=== PATIENT | male | born 1980 | race Caucasian/White ===

== ENCOUNTER 2021-03-04 00:04 | Emergency (ER) | payer OTHER ==
[~2021-03-04] VITALS: Ht 167.6 cm; Wt 102.5 kg
[2021-03-04 00:20] VITALS: BP 138/90
--- NOTE | 2021-03-04 00:24 | NUR ---
PATIENT AMBUALTED TO BED 2 WITH STEADY GAIT.
--- NOTE | 2021-03-04 00:30 | NUR ---
40/M PATIENT BIB SELF FOR C/O L BUTTOCKS ABSCESS. PER PATIENT ABSCESS SHOWED UP X 2 DAYS AGO BUT POPPED TODAY. SWELLING, REDNESS AND WHITE DISCHARGE NOTED UPON ASSESSMENT. PT COMPLAINING OF RUBBING/BURNING PAIN 5/10. PT DENIES ANY FEVER OR CHILLS. PMH: DM, THYROID NKDA
--- NOTE | 2021-03-04 00:34 | NUR ---
DR MONACO AT BEDSIDE EXAMINING PATIENT
[2021-03-04] MEDS ORDERED: NACL 0.9% 1,000 ML IV ONE (00:45)
[2021-03-04] MEDS ORDERED: MORPHINE SULFATE 2 MG/ML SYR IVP ONE (00:45)
[2021-03-04] MEDS ORDERED: ONDANSETRON 4 MG/2 ML VIAL IVP ONE (00:45)
[2021-03-04] MEDS ORDERED: CEFEPIME 2,000 MG in DEXTROSE 5% 100 ML IV ONE (00:45)
[2021-03-04] MEDS ORDERED: CEFEPIME 2,000 MG VIAL IV ONE (01:02)
[2021-03-04 01:05] LABS: BASOPHILS # (AUTO) 0.1 K/uL (0.00-0.22); BASOPHILS % (AUTO) 0.9 % (0.0-2.0); EOSINOPHILS # (AUTO) 0.1 K/uL (0-0.4); EOSINOPHILS % (AUTO) 0.8 % (0.0-4.0); HEMATOCRIT 39.6 % (36-52); HEMOGLOBIN 13.4 g/dL (12.0-18.0); LYMPHOCYTES % (AUTO) 31.1 % (20.5-51.1); MEAN CORPUSCULAR HEMOGLOBIN 30 pg (27-31); MEAN CORPUSCULAR HGB CONC 34 g/dL (33-37); MEAN CORPUSCULAR VOLUME 88.8 fL (80-94); MONOCYTES # (AUTO) 0.4 K/uL (0.8-1.0); MONOCYTES % (AUTO) 6.8 % (1.7-9.3); NEUTROPHILS # (AUTO) 3.9 K/uL (1.8-7.7); NEUTROPHILS % (AUTO) 60.4 % (42.2-75.2); PLATELET COUNT (AUTO) 357 K/uL (140-450); RED BLOOD CELL COUNT(AUTO) 4.46 MIL/uL (4.20-6.10); RED CELL DISTRIBUTION WIDTH 13.9 % (11.6-13.7); WHITE BLOOD COUNT (AUTO) 6.4 K/uL (4.8-10.8)
[2021-03-04 01:28] LABS: ALBUMIN 3.1 g/dL (3.4-5.0); ANION GAP 16.6 (8-16); CARBON DIOXIDE 25.5 mmol/L (21-32); POTASSIUM 4.1 mmol/L (3.5-5.1); TOTAL BILIRUBIN 0.8 mg/dL (0.0-1.0)
--- NOTE | 2021-03-04 01:35 | NUR ---
PT RECEIVED TDAP VACCINATION IN [address]. DR. MONACO NOTIFIED AND ORDER CANCELLED AT THIS TIME.
[2021-03-04 02:27] LABS: APPEARANCE,URINE CLEAR (CLEAR); BILIRUBIN,URINE NEGATIVE (NEGATIVE); BLOOD, URINE NEGATIVE (NEGATIVE); COLOR,URINE YELLOW (YELLOW); LEUKOCYTE ESTERASE ,URINE NEGATIVE (NEGATIVE); NITRITE, URINE NEGATIVE (NEGATIVE); UGLUCOSE 3+ (NEGATIVE)
[2021-03-04] MEDS ORDERED: CLIN300C6 PO (04:46)
[2021-03-04] MEDS ORDERED: IBUP-2218 PO (04:46)
[2021-03-04] MEDS ORDERED: CEPH-588 PO (04:47)
[2021-03-04 05:03] VITALS: BP 125/85
--- NOTE | 2021-03-04 05:03 | NUR ---
Patient discharged with v/s stable. Written and verbal after care instructions given and explained. Patient alert, oriented and verbalized understanding of instructions. Ambulatory with steady gait. All questions addressed prior to discharge. IV access and ID band removed. Patient advised to follow up with PMD. Rx of Clindamycin, Keflex, Ibuprofen given. Patient educated on indication of medication including possible reaction and side effects. Opportunity to ask questions provided and answered.
== END 2021-03-04 05:03 | disposition home or self-care (01) ==
LOC: MED 00:04
DX: L02.215 Cutaneous abscess of perineum (principal); E11.9 Type 2 diabetes mellitus without complications; E07.9 Disorder of thyroid, unspecified; Z79.899 Other long term (current) drug therapy
CPT/HCPCS: 36415; 74177; 80053; 81003; 83605; 85025; 87040; 87070; 87075; 90715; 96365; 96375; 99285; J0692; J2270; J2405; J7030; Q9967

== ENCOUNTER 2021-07-25 04:59 | Emergency (ER) | payer OTHER ==
[~2021-07-25] VITALS: Ht 170.2 cm; Wt 104.3 kg
[~2021-07-25 04:59] MED LIST: CEPH-588 PO; CLIN300C61 PO; IBUP-2218 PO
[2021-07-25 05:06] VITALS: BP 142/90
--- NOTE | 2021-07-25 05:17 | NUR ---
PT TAKEN TO BED 1
--- NOTE | 2021-07-25 05:20 | NUR ---
C/O COUGH, AND "MY DIABETES" I RAN OUT OF MY INSULIN FOR ABOUT 3 DAYS. PATIENT NORMALLY TAKES INSULIN AND METFORMIN BUT DOES NOT HAVE THE MEANS TO GET THE MONEY. PATIEN DENIES N/V/D, FEVER, SOB, C/P, AND DIFFICULTY BREATHING. AAOX4. PMH: KELSY LOPEZA
[2021-07-25] MEDS ORDERED: AZITHROMYCIN 250 MG TAB PO ONE (05:50)
[2021-07-25] MEDS ORDERED: ALBUTEROL SULFATE/IPRATROPIU 3 ML SOL IH ONE (05:50)
[2021-07-25] MEDS ORDERED: DEXAMETHASONE 4 MG/ML VIAL IVP ONE (05:50)
--- NOTE | 2021-07-25 05:54 | NUR ---
PATIENT TESTED O2 SATURATION WITH EXERTION. SATURATING AT 92% RA
[2021-07-25 06:09] LABS: BASOPHILS % (AUTO) 0.3 % (0.0-2.0); EOSINOPHILS % (AUTO) 0.2 % (0.0-4.0); HEMATOCRIT 40.5 % (36-52); HEMOGLOBIN 13.5 g/dL (12.0-18.0); LYMPHOCYTES # (AUTO) 1.3 K/uL (2.0-11.5); LYMPHOCYTES % (AUTO) 11.6 % (20.5-51.1); MEAN CORPUSCULAR HEMOGLOBIN 29 pg (27-31); MEAN CORPUSCULAR HGB CONC 34 g/dL (33-37); MEAN CORPUSCULAR VOLUME 87.5 fL (80-94); MONOCYTES # (AUTO) 0.6 K/uL (0.8-1.0); MONOCYTES % (AUTO) 5.3 % (1.7-9.3); NEUTROPHILS # (AUTO) 9.5 K/uL (1.8-7.7); NEUTROPHILS % (AUTO) 82.6 % (42.2-75.2); PLATELET COUNT (AUTO) 351 K/uL (140-450); RED BLOOD CELL COUNT(AUTO) 4.62 MIL/uL (4.20-6.10); RED CELL DISTRIBUTION WIDTH 14.4 % (11.6-13.7); WHITE BLOOD COUNT (AUTO) 11.5 K/uL (4.8-10.8)
[2021-07-25] MEDS ORDERED: cefTRIAXone 1,000 MG VIAL ONE (06:10)
[2021-07-25 06:21] LABS: ANION GAP 14.1 (8-16); CARBON DIOXIDE 28.8 mmol/L (21-32); CHLORIDE 96 mmol/L (98-107); CREATININE 0.9 mg/dL (0.6-1.3); GFR ARICAN-AMERICAN 119 mL/min (>90); GLUCOSE 312 mg/dL (74-106); POTASSIUM 3.9 mmol/L (3.5-5.1); SODIUM SERUM 135 mmol/L (136-145); UREA NITROGEN, BLOOD 12 mg/dL (7-18)
--- NOTE | 2021-07-25 06:23 | NUR ---
RADHA Santos CASE MANAGEMENT FROM [facility] FOR UPDATES AND INFORMATION ON PATIENT
[2021-07-25 06:26] LABS: ALBUMIN 2.2 g/dL (3.4-5.0); ASPARTATE AMINOTRANSFERASE 18 U/L (15-37); TOTAL BILIRUBIN 0.7 mg/dL (0.0-1.0)
[2021-07-25 06:29] LABS: ACETONE, SERUM NEGATIVE (NEGATIVE)
--- NOTE | 2021-07-25 07:07 | NUR ---
Report and continuation of care received from SARAH Whitfield
--- NOTE | 2021-07-25 07:07 | NUR ---
Pt report given to Rogelio SMITH. Transfer of care at this time.
--- NOTE | 2021-07-25 10:07 | NUR ---
[facility] provided and ice chips provided per request
--- NOTE | 2021-07-25 12:55 | NUR ---
Patient requesting to AMA. Dr. Quezada made aware and to speak with pt and family.
[2021-07-25] MEDS ORDERED: AZIT250T3 PO (13:09)
--- NOTE | 2021-07-25 13:15 | NUR ---
Dr. Quezada is at bedside
--- NOTE | 2021-07-25 13:43 | NUR ---
[facility] provided per request. Father at bedside
--- NOTE | 2021-07-25 14:23 | NUR ---
Patient with both eyes closed. Father remains at bedside. air bag curer in place; VSS; respirations even/unlabored @ 20; SpO2 97% on 2L by NC. No distress noted.
--- NOTE | 2021-07-25 16:01 | NUR ---
Patient presents both eyes closed. security monitor in place. VSS. Will continue to monitor. SpO2 98% on 2L NC.
--- NOTE | 2021-07-25 16:49 | NUR ---
Report given to SARAH JHAVERI. All questions answered. Advised will recontact once patient en route to facility.
--- NOTE | 2021-07-25 17:41 | NUR ---
[facility] staff at bedside
[2021-07-25 17:49] VITALS: BP 126/85
--- NOTE | 2021-07-25 17:49 | NUR ---
Patient to be transferred to [facility]. Is being transferred due to Insurance Request. Receiving facility has accepting physician and available space. ER physician has signed transfer form. Patient or responsible constitution party has agreed to transfer and signed form. Patient belongings inventoried and will be sent with patient. Copy of nursing notes, lab reports, EKG, Physicians Orders and X-rays to be sent with patient. Report called to SARAH JHAVERI at receiving facility. [facility] ambulance service has been called for transfer. ETA is 1730.
== END 2021-07-25 17:49 | disposition short-term general hospital (02) ==
LOC: MED 04:59
DX: J96.01 Acute respiratory failure with hypoxia (principal); J18.9 Pneumonia, unspecified organism; Z20.822 Contact with and (suspected) exposure to COVID-19; R05.9 Cough, unspecified; E11.9 Type 2 diabetes mellitus without complications; Z86.39 Personal history of other endocrine, nutritional and metabolic disease; Z79.1 Long term (current) use of non-steroidal anti-inflammatories (NSAID); Z79.2 Long term (current) use of antibiotics
CPT/HCPCS: 36415; 71045; 80053; 81002; 82009; 83605; 83880; 84484; 85025; 87040; 87426; 93005; 94640; 96365; 96375; 99291; J0696; J1100; Q0092

== ENCOUNTER 2022-09-27 01:00 | Inpatient (IN) | payer MEDICAID, OTHER ==
[~2022-09-27] VITALS: Ht 167.6 cm; Wt 99.8 kg
[~2022-09-27 01:00] MED LIST changes: +AZIT250T3 PO
--- NOTE | 2022-09-27 01:06 | NUR ---
PT TAKEN TO BED 8
[2022-09-27 01:08] VITALS: BP 137/92
--- NOTE | 2022-09-27 01:22 | NUR ---
swabbed pt for covid and flu and sent to lab
--- NOTE | 2022-09-27 01:26 | NUR ---
Dr. Sigala examining patient.
[2022-09-27] MEDS ORDERED: MORPHINE SULFATE 4 MG/ML SYR IVP ONE ×2 (01:35→04:45)
[2022-09-27] MEDS ORDERED: ONDANSETRON 4 MG/2 ML VIAL IVP ONE (01:35)
[2022-09-27 01:40] LABS: BASOPHILS # (AUTO) 0.1 K/uL (0.00-0.22); BASOPHILS % (AUTO) 0.7 % (0.0-2.0); EOSINOPHILS % (AUTO) 0.1 % (0.0-4.0); HEMATOCRIT 36.2 % (36-52); LYMPHOCYTES # (AUTO) 2.3 K/uL (2.0-11.5); LYMPHOCYTES % (AUTO) 14.3 % (20.5-51.1); MEAN CORPUSCULAR HEMOGLOBIN 28 pg (27-31); MEAN CORPUSCULAR HGB CONC 33 g/dL (33-37); MEAN CORPUSCULAR VOLUME 85.5 fL (80-94); MONOCYTES # (AUTO) 1.4 K/uL (0.8-1.0); MONOCYTES % (AUTO) 8.4 % (1.7-9.3); NEUTROPHILS # (AUTO) 12.5 K/uL (1.8-7.7); NEUTROPHILS % (AUTO) 76.5 % (42.2-75.2); PLATELET COUNT (AUTO) 607 K/uL (140-450); RED BLOOD CELL COUNT(AUTO) 4.24 MIL/uL (4.20-6.10); RED CELL DISTRIBUTION WIDTH 14.3 % (11.6-13.7); WHITE BLOOD COUNT (AUTO) 16.3 K/uL (4.8-10.8)
--- NOTE | 2022-09-27 01:45 | NUR ---
pt is alert and oriented x4. he came in for chest pain, able to walk to bathroom. room air.
[2022-09-27] MEDS ORDERED: AZITHROMYCIN 500 MG in DEXTROSE 5% 250 ML IV ONE (02:10)
[2022-09-27 02:17] LABS: ALBUMIN 1.7 g/dL (3.4-5.0); ANION GAP 11.4 (8-16); CARBON DIOXIDE 32.1 mmol/L (21-32); CREATININE 1.1 mg/dL (0.6-1.3); POTASSIUM 4.5 mmol/L (3.5-5.1); TOTAL BILIRUBIN 0.4 mg/dL (0.0-1.0)
[2022-09-27] MEDS ORDERED: AZITHROMYCIN 500 MG INJ VIAL IV ONE (02:17)
[2022-09-27] MEDS ORDERED: NACL 0.9% 1,000 ML IV SCH (03:55)
[2022-09-27] MEDS ORDERED: ASPIRIN 325 MG TAB PO ONE (03:55)
[2022-09-27] MEDS ORDERED: ASPIRIN 325 MG TAB PO SCH (03:55)
--- NOTE | 2022-09-27 04:30 | NUR ---
blood sugar 354, patient unable to give the med that he is taking at home. He mentioned about the insulin but he is not sure how much .
[2022-09-27] MEDS ORDERED: NACL 0.9% 500 ML IV ONE (04:35)
[2022-09-27] MEDS ORDERED: LEVO50TA11 PO (07:08)
[2022-09-27] MEDS ORDERED: SLIDE SUBQ (07:08)
[2022-09-27] MEDS ORDERED: ATOR20TA PO (07:08)
[2022-09-27] MEDS ORDERED: METF-346 PO (07:08)
--- NOTE | 2022-09-27 07:30 | NUR ---
REPORT RECEIVED FROM SASHA SMITH. ASSUMED CARE AT THIS TIME
--- NOTE | 2022-09-27 07:45 | NUR ---
pending sliding scale, MD SNYDER MADE AWARE BY PM NURSE. pt at rest w/ eyes closed. respirations even and unlabored. on monitor car operator
[2022-09-27] MEDS: NACL 0.9% 1,000 ML IV SCH (08:55)
[2022-09-27] MEDS ORDERED: DOCUSATE SODIUM 100 MG GELCAP PO PRN (08:55)
[2022-09-27] MEDS ORDERED: ONDANSETRON 4 MG/2 ML VIAL IM/IVP PRN (08:55)
[2022-09-27] MEDS ORDERED: POTASSIUM CHLORIDE 10 MEQ TABER PO PRN (08:55)
[2022-09-27] MEDS ORDERED: DEXTROSE 50% 50 ML SYR IVP PRN (08:55)
[2022-09-27] MEDS ORDERED: ACETAMINOPHEN 325 MG TAB PO PRN (08:55)
[2022-09-27] MEDS ORDERED: PIPERACILLIN/TAZOBACTAM 3.375 GM VIAL IV ONE ×2 (08:59→12:21)
[2022-09-27] MEDS: PIPERACILLIN/TAZOBACTAM 3.375 GM in DEXTROSE 5% 50 ML IV SCH ×3 (09:07→18:17)
[2022-09-27] MEDS: metFORMIN 500 MG TAB PO SCH ×2 (09:16→17:13)
[2022-09-27] MEDS: ATORVASTATIN 20 MG TAB PO SCH (09:16)
[2022-09-27] MEDS: LEVOTHYROXINE 0.05 MG TAB PO SCH (09:16)
[2022-09-27] MEDS: PANTOPRAZOLE 40 MG TABEC PO SCH (09:16)
[2022-09-27] MEDS: HYDROcodone/APAP 7.5/325 MG 1 TAB PO PRN ×2 (09:29→19:30)
[2022-09-27] MEDS: INSULIN LISPRO SLIDING SCALE 100 UNITS/ML VIAL SUBQ PRN ×4 (09:30→21:36)
--- NOTE | 2022-09-27 09:32 | NUR ---
pt provided w/ breakfast . pt awake and eating in bed
[2022-09-27 09:45] LABS: PROTHROMBIN TIME 11.1 secs (10.8-13.4)
--- NOTE | 2022-09-27 09:56 | NUR ---
DR SNYDER AT BEDSIDE FOR EVAL
[2022-09-27 10:03] LABS: CHOL/HDL RATIO 3.6 (1-4.5); FREE T4 (FREE THYROXINE) 0.31 ng/dL (0.76-1.46); MAGNESIUM 1.6 mg/dL (1.8-2.4); PHOSPHORUS 2.9 mg/dL (2.5-4.9); THYROID STIMULATING HORMONE 79.5 uIU/mL (0.34-3.74)
--- NOTE | 2022-09-27 10:22 | NUR ---
pt states relief andat rest w/ eyes closed. respirations even and unlabored. on community liaison.
--- NOTE | 2022-09-27 10:57 | NUR ---
PATIENT HAS BEEN SCREENED AND CATEGORIZED MODERATE NUTRITION RISK. PATIENT WILL BE SEEN WITHIN 3-5 DAYS OF ADMISSION. REVIEWED BY FANG GARCIA RD
--- NOTE | 2022-09-27 11:03 | NUR ---
CALL RECEIVED FROM FE BARNETT , UPDATED ON PT STATUS
--- NOTE | 2022-09-27 11:21 | NUR ---
PT TAKEN TO CT VIA JOSEF
--- NOTE | 2022-09-27 11:32 | NUR ---
PT BROUGHT BACK VIA JOSEF
--- NOTE | 2022-09-27 12:14 | NUR ---
MD SNYDER MADE AWARE OF PT BS AND STATUS. PENDING ORDERS
--- NOTE | 2022-09-27 12:15 | NUR ---
Sandi ng in [facility] - 09/27/22 at 1226 by PHSEP WRITTEN ORDERS RECEIVED FROM MD SNYDER. "GIVE ANOTHER 12UNITS". ORDERS CARRIED OUT
[2022-09-27] MEDS: BLOOD GLUCOSE MONITORING 1 DEV DEV FS SCH ×3 (12:19→21:06)
--- NOTE | 2022-09-27 12:31 | NUR ---
WRITTEN ORDERS RECEIVED FROM MD SNYDER. ORDERS CONFIRMED AND CARRIED OUT GIVE ANOTHER 12 UNITS RUSTAM LEEPRO ADD LANTUS 15 UNITS DAILY Addendum: 09/27/22 at 1500 by PHSEP Amendment undone in EDM - 09/27/22 at 1501 by PHSEP start order stat -when given Addendum: 09/27/22 at 1501 by PHSEP START ORDER STAT : LANTUS 15 UNITS DAILY
--- NOTE | 2022-09-27 12:40 | NUR ---
pt provided w/ lunch. pt awake and eating in bed
[2022-09-27] MEDS: INSULIN LANTUS 100 UNITS/ML 10 ML VIAL SUBQ SCH (13:33)
--- NOTE | 2022-09-27 14:54 | NUR ---
pt changed into new gown and linens. provided w/ hygiene products
[2022-09-27] MEDS: guaiFENesin DM 200/20 MG-10 ML 10 ML UDC PO PRN (15:18)
--- NOTE | 2022-09-27 19:30 | NUR ---
REPORT GIVEN TO CARMEN RN. TRANSFER OF CARE AT THIS TIME
--- NOTE | 2022-09-27 19:41 | NUR ---
Spoke with patient's mother to update patient's status.
--- NOTE | 2022-09-27 20:31 | NUR ---
Patient appears to be resting comfortably in bed. Respirations even and unlabored.
--- NOTE | 2022-09-27 21:15 | NUR ---
BS 212 , Given Humolog 4 units SQ as protocol.
--- NOTE | 2022-09-27 23:18 | NUR ---
Patient appears to be resting comfortably in bed. Respirations even and unlabored.
[2022-09-28] MEDS ORDERED: PIPERACILLIN/TAZOBACTAM 3.375 GM VIAL IV ONE ×2 (00:05→05:10)
[2022-09-28] MEDS: PIPERACILLIN/TAZOBACTAM 3.375 GM in DEXTROSE 5% 50 ML IV SCH ×5 (00:23→23:25)
[2022-09-28] MEDS: NACL 0.9% 1,000 ML IV SCH ×2 (02:35→18:40)
[2022-09-28] MEDS: HYDROcodone/APAP 7.5/325 MG 1 TAB PO PRN ×2 (02:37→15:46)
--- NOTE | 2022-09-28 02:38 | NUR ---
Patient reported, back pain, pain 6/10. Given [place] PO as protocol for pain
--- NOTE | 2022-09-28 04:28 | NUR ---
Patient appears to be resting comfortably in bed. Respirations even and unlabored.
[2022-09-28] MEDS: LEVOTHYROXINE 0.05 MG TAB PO SCH (06:37)
--- NOTE | 2022-09-28 06:41 | NUR ---
Patient request cough medication, Given Robitussin/Dextromethorphan
[2022-09-28] MEDS: guaiFENesin DM 200/20 MG-10 ML 10 ML UDC PO PRN (06:42)
--- NOTE | 2022-09-28 07:23 | NUR ---
Report given to SARAH Jesus and endorse care of patient.
[2022-09-28 07:42] LABS: BASOPHILS % (AUTO) 0.2 % (0.0-2.0); EOSINOPHILS % (AUTO) 0.2 % (0.0-4.0); HEMOGLOBIN 9.7 g/dL (12.0-18.0); LYMPHOCYTES # (AUTO) 2.1 K/uL (2.0-11.5); LYMPHOCYTES % (AUTO) 15.5 % (20.5-51.1); MEAN CORPUSCULAR HEMOGLOBIN 28 pg (27-31); MEAN CORPUSCULAR HGB CONC 34 g/dL (33-37); MEAN CORPUSCULAR VOLUME 84.2 fL (80-94); MONOCYTES # (AUTO) 1.2 K/uL (0.8-1.0); MONOCYTES % (AUTO) 9.2 % (1.7-9.3); NEUTROPHILS # (AUTO) 10.1 K/uL (1.8-7.7); NEUTROPHILS % (AUTO) 74.9 % (42.2-75.2); PLATELET COUNT (AUTO) 518 K/uL (140-450); RED BLOOD CELL COUNT(AUTO) 3.44 MIL/uL (4.20-6.10); RED CELL DISTRIBUTION WIDTH 14.2 % (11.6-13.7); WHITE BLOOD COUNT (AUTO) 13.5 K/uL (4.8-10.8)
[2022-09-28 07:49] LABS: ANION GAP 9.6 (8-16); CARBON DIOXIDE 30.3 mmol/L (21-32); CREATININE 0.8 mg/dL (0.6-1.3); POTASSIUM 3.9 mmol/L (3.5-5.1)
[2022-09-28 08:07] LABS: T3 UPTAKE 26 % (24-39)
[2022-09-28 08:15] VITALS: BP 115/87
--- NOTE | 2022-09-28 08:15 | NUR ---
RECEIVED THE PATIENT FROM ER VIA [facility] ,PATIENT WAS STABLE,SITTING ON THE BED,IV LINE WITH 18G ON RIGHT AC,WITH IV SALINE 60 ML PER HOUR.THE SATURATION IS 100 PERCENT ON ROOM AIR.
[2022-09-28] MEDS: BLOOD GLUCOSE MONITORING 1 DEV DEV FS SCH ×4 (08:19→20:49)
[2022-09-28] MEDS: ATORVASTATIN 20 MG TAB PO SCH (08:21)
[2022-09-28] MEDS: metFORMIN 500 MG TAB PO SCH ×2 (08:21→17:00)
[2022-09-28] MEDS: PANTOPRAZOLE 40 MG TABEC PO SCH (08:22)
[2022-09-28] MEDS: INSULIN LISPRO SLIDING SCALE 100 UNITS/ML VIAL SUBQ PRN ×4 (08:25→20:51)
--- NOTE | 2022-09-28 08:55 | NUR ---
Patient will be admitted to care DR SNYDER . Admited to TELE FLOOR. Will go to [id number]. Belongings list completed. Report to SARAH FALK.
[2022-09-28] MEDS: INSULIN LANTUS 100 UNITS/ML 10 ML VIAL SUBQ SCH (09:00)
--- NOTE | 2022-09-28 09:14 | NUR ---
Patient will be admitted to care of DR SNYDER. Admited to TELE FLOOR. Will go to [id number]. Belongings list completed. Report to SARAH FALK.
--- NOTE | 2022-09-28 15:31 | NUR ---
DC PLANNING YUDI MET WITH PT AT BEDSIDE TO COMPLETE ASSESSMENT. PT REPORTS RESIDING IN A SINGLE STORY HOME WITH FAMILY (MOM, DAD, NIECE, NEPHEW) AT THE ADDRESS LISTED ON FILE. PT IDENTIFIED BERNARDA CONROY, MOM, EMERGENCY CONTACT. PT DENIED AD IN PLACE AND DECLINED AD OFFERED BY YUDI. PT REPORTS LAST VISIT WITH PCP AT TWO YEARS AGO. PT REPORTS LAST SEEING A PHYSICIAN WHILE INCARCERATED. PT REPORTS RECENTLY LOSING HIS MEDICAL BENEFITS HE CURRENTLY IS NOT WORKING. PT IS WORKING ON OBTAINING MEDICAL INSURANCE WITH ERICA FROM [employer]. PT REPORTS NONCOMPLIANCE WITH MEDICATION. SW INQUIRED ON WHY PT IS NON COMPLIANT, PT RESPONDED THAT HE SIMPLY DOESN'T WANT TO TAKE IT. PT REPORTS IF MEDICATION IS REQUIRED, HE RECEIVES MEDICATION FROM [facility] ON [address] IN [place]. PT DENIES MH HX. 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 PT REPORTS THAT IS TYPICALLY ONLY SOBER, WHEN INCARCERATED. PT REPORTS A RECENT RELAPSE IN 2019 AND REPORTS THAT HE USES "ALL DAY, EVERYDAY". SW PROVIDED PT WITH PSYCHO EDUCATION ON DAIRY WORKER USE, PT RECEPTIVE AND ACCEPTED AD OFFERED BY YUDI. PT REPORTS HX OF DIABETES THAT IS NOT WELL MANAGED HE SIMPLY DOES NOT CARE. SW PROVIDED PT WITH PSYCHO EDUCATION ON MISMANAGED DIABETES AND DAIRY WORKER IMPLICATIONS. PT RECEPTIVE AND DECLINED DIABETES RESOURCES OFFERED. PT DENIES HX OF DIALYSIS, SNF, HH. PT REPORTS DC PLAN IS TO RETURN HOME WITH FAMILY OR FRIEND PROVIDING TRANSPORTATION. SW INQUIRED ON ADDITIONAL RESOURCES NEEDED, PT DECLINED. Addendum: 09/28/22 at 1533 by Otto MOORE Amended: Links added.
[2022-09-28 16:00] VITALS: BP 127/78
[2022-09-28 16:14] LABS: APPEARANCE,URINE CLEAR (CLEAR); BILIRUBIN,URINE NEGATIVE (NEGATIVE); BLOOD, URINE TRACE-I (NEGATIVE); COLOR,URINE YELLOW (YELLOW); LEUKOCYTE ESTERASE ,URINE TRACE (NEGATIVE); NITRITE, URINE NEGATIVE (NEGATIVE); UGLUCOSE TRACE (NEGATIVE)
[2022-09-28 16:33] LABS: WBC,URINE 16-25 (MOD) /HPF (0-5)
[2022-09-28 16:49] LABS: BARBITURATE, URINE NEGATIVE ng/ml (NEG <=200); BENZODIAZEPINE, URINE NEGATIVE ng/mL (NEG <=200); CANNABINOID, URINE NEGATIVE ng/mL (NEG <=50); COCAINE, URINE NEGATIVE ng/mL (NEG <=300); PHENCYCLIDINE SCREEN,URINE NEGATIVE ng/mL (NEG <=25)
[2022-09-28 16:50] LABS: OPIATE, URINE POSITIVE ng/mL (NEG <=2000)
--- NOTE | 2022-09-28 19:04 | NUR ---
ENDORSED PT TO NIGHT RN FOR CONTINUITY OF CARE, PT IS STABLE AT THIS TIME, WITH FAMILY ON THE BEDSIDE.
--- NOTE | 2022-09-28 19:30 | NUR ---
RECEIVED PT FROM DAY RN FOR CONTINUITY OF CARE. PT AWAKE, ALERT AND ORIENTED X 4. FAMILY AT BEDSIDE.ON ROOM AIR, NO ACUTE DISTRESS NOTED.BREATHING IS EVEN AND UNLABORED. NO COMPLAINS OF PAIN. IV ON R AC G18, RUNNING NS 60ML/HR PER MD ORDER.ALL PRECAUTIONS IN PLACE. CALL LIGHT WITHIN REACH. WILL CONTINUE TO MONITOR.
[2022-09-28 20:00] VITALS: BP 95/56
[2022-09-28] MEDS: ZOLPIDEM 5 MG TAB PO PRN (22:19)
[2022-09-29] VITALS: BP 106/72
--- NOTE | 2022-09-29 | NUR ---
DUE MEDICATIONS GIVEN ORDERED. WILL CONTINUE TO MONITOR THE PATIENT.
[2022-09-29] MEDS: HYDROcodone/APAP 7.5/325 MG 1 TAB PO PRN (03:50)
[2022-09-29 04:00] VITALS: BP 131/77
[2022-09-29] MEDS: PIPERACILLIN/TAZOBACTAM 3.375 GM in DEXTROSE 5% 50 ML IV SCH ×4 (05:11→23:18)
[2022-09-29] MEDS: LEVOTHYROXINE 0.05 MG TAB PO SCH (05:50)
[2022-09-29 06:05] LABS: BASOPHILS # (AUTO) 0.1 K/uL (0.00-0.22); BASOPHILS % (AUTO) 0.7 % (0.0-2.0); EOSINOPHILS # (AUTO) 0.1 K/uL (0-0.4); EOSINOPHILS % (AUTO) 0.5 % (0.0-4.0); HEMATOCRIT 28.6 % (36-52); HEMOGLOBIN 9.5 g/dL (12.0-18.0); LYMPHOCYTES # (AUTO) 2.1 K/uL (2.0-11.5); LYMPHOCYTES % (AUTO) 16.1 % (20.5-51.1); MEAN CORPUSCULAR HEMOGLOBIN 28 pg (27-31); MEAN CORPUSCULAR HGB CONC 33 g/dL (33-37); MEAN CORPUSCULAR VOLUME 83.4 fL (80-94); MONOCYTES # (AUTO) 1.2 K/uL (0.8-1.0); MONOCYTES % (AUTO) 9.4 % (1.7-9.3); NEUTROPHILS # (AUTO) 9.5 K/uL (1.8-7.7); NEUTROPHILS % (AUTO) 73.3 % (42.2-75.2); PLATELET COUNT (AUTO) 588 K/uL (140-450); RED BLOOD CELL COUNT(AUTO) 3.43 MIL/uL (4.20-6.10); RED CELL DISTRIBUTION WIDTH 14.3 % (11.6-13.7)
[2022-09-29 06:23] LABS: ANION GAP 9.8 (8-16); CARBON DIOXIDE 29.3 mmol/L (21-32); CREATININE 0.8 mg/dL (0.6-1.3); POTASSIUM 4.1 mmol/L (3.5-5.1)
[2022-09-29] MEDS: BLOOD GLUCOSE MONITORING 1 DEV DEV FS SCH ×4 (06:23→21:05)
[2022-09-29] MEDS: INSULIN LISPRO SLIDING SCALE 100 UNITS/ML VIAL SUBQ PRN ×3 (06:25→16:59)
--- NOTE | 2022-09-29 07:35 | NUR ---
PT IS STABLE. NO ACUTE EVENTS THROUGHOUT THE NIGHT.ALL NEEDS MET. ALL PRECAUTIONS IN PLACE.NO S/SX OF DISTRESS NOTED. CALL LIGHT WITHIN REACH.ALL PRECAUTIONS IN PLACE. WILL ENDORSE TO DAY SHIFT RN.
--- NOTE | 2022-09-29 07:36 | NUR ---
RECEIVED PT FROM POST OFFICE CLERK NURSE JENNIFER FOR CONTINUITY OF CARE. PT SLEEPING, EASILY AROUSABLE BY VERBAL STIMULI. NO DISTRESS NOTED. NO SIGNS OF PAIN. ON ELECTRIC REFRIGERATOR SERVICER. SKIN INTACT, WARM AND DRY TO TOUCH. IV SITE ON LEFT HAND INFUSING IVF. CALL LIGHT WITHIN REACH. SAFETY PRECAUTIONS IN PLACE.
[2022-09-29 08:00] VITALS: BP 129/87
[2022-09-29] MEDS: metFORMIN 500 MG TAB PO SCH ×2 (08:32→17:04)
[2022-09-29] MEDS: PANTOPRAZOLE 40 MG TABEC PO SCH (08:32)
[2022-09-29] MEDS: ATORVASTATIN 20 MG TAB PO SCH (08:32)
[2022-09-29] MEDS: INSULIN LANTUS 100 UNITS/ML 10 ML VIAL SUBQ SCH (08:36)
--- NOTE | 2022-09-29 08:44 | NUR ---
ADMINISTERED DUE MEDS. BS-254, V/S WITHIN NORMAL LIMIT. PT TEACHING ABOUT MEDS DONE. PT VERBALIZED UNDERSTANDING.
--- NOTE | 2022-09-29 10:22 | NUR ---
SEEN BY DR. ROMERO.
[2022-09-29] MEDS: NACL 0.9% 1,000 ML IV SCH (10:55)
[2022-09-29 12:00] VITALS: BP 113/76
--- NOTE | 2022-09-29 12:14 | NUR ---
BLOOD SUGAR CHECK DONE. SLIDING SCALE INSULIN ADMINISTERED.
--- NOTE | 2022-09-29 13:12 | NUR ---
RECEIVED CRITICAL LAB REPORT FROM LAB. BLOOD CULTURE - GRAM POSITIVE COCCI. REPORTED TO . NO NEW ORDERS RECEIVED.
[2022-09-29 16:00] VITALS: BP 113/76
--- NOTE | 2022-09-29 16:57 | NUR ---
BLOOD SUGAR CHECK DONE. SLIDING SCALE INSULIN ADMINISTERED FOR BS 363.
--- NOTE | 2022-09-29 19:26 | NUR ---
GAVE BEDSIDE REPORT TO PICKERS MATERIAL HANDLERS NURSE JENNIFER FOR CONTINUITY OF CARE. ALL NEEDS MET THROUGHOUT SHIFT. PT IS STABLE.
--- NOTE | 2022-09-29 19:30 | NUR ---
RECEIVED PT FROM DAY RN FOR CONTINUITY OF CARE. PT AWAKE, ALERT AND ORIENTED X 4. .ON ROOM AIR, NO ACUTE DISTRESS NOTED.BREATHING IS EVEN AND UNLABORED. NO COMPLAINS OF PAIN. IV ON l hand g22. RUNNING NS 60ML/HR PER MD ORDER.ALL PRECAUTIONS IN PLACE. CALL LIGHT WITHIN REACH. WILL CONTINUE TO MONITOR.
[2022-09-29 20:00] VITALS: BP 102/63
[2022-09-30] VITALS: BP 112/70
[2022-09-30] MEDS: NACL 0.9% 1,000 ML IV SCH (03:35)
[2022-09-30 04:00] VITALS: BP 99/62
--- NOTE | 2022-09-30 06:00 | NUR ---
DUE MEDICATIONS GIVEN ORDERED. WILL CONTINUE TO MONITOR THE PATIENT.
[2022-09-30 06:02] LABS: BASOPHILS # (AUTO) 0.1 K/uL (0.00-0.22); BASOPHILS % (AUTO) 0.6 % (0.0-2.0); EOSINOPHILS % (AUTO) 0.4 % (0.0-4.0); HEMATOCRIT 28.3 % (36-52); HEMOGLOBIN 9.4 g/dL (12.0-18.0); LYMPHOCYTES # (AUTO) 2.8 K/uL (2.0-11.5); LYMPHOCYTES % (AUTO) 21.7 % (20.5-51.1); MEAN CORPUSCULAR HEMOGLOBIN 28 pg (27-31); MEAN CORPUSCULAR HGB CONC 33 g/dL (33-37); MEAN CORPUSCULAR VOLUME 83.4 fL (80-94); MONOCYTES # (AUTO) 1.3 K/uL (0.8-1.0); MONOCYTES % (AUTO) 9.9 % (1.7-9.3); NEUTROPHILS # (AUTO) 8.7 K/uL (1.8-7.7); NEUTROPHILS % (AUTO) 67.4 % (42.2-75.2); PLATELET COUNT (AUTO) 622 K/uL (140-450); RED BLOOD CELL COUNT(AUTO) 3.39 MIL/uL (4.20-6.10); RED CELL DISTRIBUTION WIDTH 14.5 % (11.6-13.7); WHITE BLOOD COUNT (AUTO) 12.9 K/uL (4.8-10.8)
[2022-09-30 06:29] LABS: ANION GAP 8.2 (8-16); CARBON DIOXIDE 31.7 mmol/L (21-32); CREATININE 0.8 mg/dL (0.6-1.3); POTASSIUM 3.9 mmol/L (3.5-5.1)
[2022-09-30] MEDS: PIPERACILLIN/TAZOBACTAM 3.375 GM in DEXTROSE 5% 50 ML IV SCH ×3 (06:30→18:27)
[2022-09-30] MEDS: LEVOTHYROXINE 0.05 MG TAB PO SCH (06:30)
[2022-09-30] MEDS: BLOOD GLUCOSE MONITORING 1 DEV DEV FS SCH ×4 (06:30→20:18)
[2022-09-30] MEDS: INSULIN LISPRO SLIDING SCALE 100 UNITS/ML VIAL SUBQ PRN ×4 (06:42→20:22)
--- NOTE | 2022-09-30 07:18 | NUR ---
RECEIVED REPORT FORM CERTIFIED PEDORTHOTIST NURSE JENNIFER FOR CONTINUITY OF CARE. PT AWAKE IN BED. RESPIRATIONS EVEN AND UNLABORED ON RA. NO DISTRESS NOTED. NO COMPLAINTS OF PAIN. ON REGIONAL GEODETIC ADVISOR. SKIN INTACT, WARM AND DRY TO TOUCH. IV SITE ON LEFT HAND G22 INFUSING IVF. CALL LIGHT WITHIN REACH. SAFETY PRECAUTIONS IN PLACE.
[2022-09-30 08:00] VITALS: BP 113/86
[2022-09-30] MEDS: INSULIN LANTUS 100 UNITS/ML 10 ML VIAL SUBQ SCH (08:44)
[2022-09-30] MEDS: PANTOPRAZOLE 40 MG TABEC PO SCH (08:45)
[2022-09-30] MEDS: metFORMIN 500 MG TAB PO SCH ×2 (08:45→17:40)
[2022-09-30] MEDS: ATORVASTATIN 20 MG TAB PO SCH (08:45)
--- NOTE | 2022-09-30 08:49 | NUR ---
ADMINISTERED DUE MEDS. BS 223. V/S WITHIN NORMAL LIMIT. PT TOLERATED WELL.
[2022-09-30 12:00] VITALS: BP 121/68
--- NOTE | 2022-09-30 12:48 | NUR ---
BLOOD SUGAR CHECK DONE. SLIDING SCALE INSULIN ADMINISTERED.
[2022-09-30 16:00] VITALS: BP 113/65
--- NOTE | 2022-09-30 16:31 | NUR ---
09/30/22 RD INITIAL ASSESSMENT COMPLETED PLEASE REFER TO NUTRITION ASSESSMENT UNDER CARE ACTIVITY FOR ESTIMATED NUTRITIONAL NEEDS. 1. CONTINUE CCHO 60 GRAM DIET 2. MONITOR BLOOD GLUCOSE LEVELS, GI, LAB VALUES, AND PO INTAKE. 3. RD TO FOLLOW-UP 7 DAYS, LOW RISK REVIEWED BY FANG GARCIA RD
--- NOTE | 2022-09-30 17:41 | NUR ---
SLIDING SCALE INSULIN GIVEN FOR BS 229.
--- NOTE | 2022-09-30 19:25 | NUR ---
GAVE BEDSIDE REPORT TO DIRECTOR BUSINESS SYSTEMS NURSE CISCO FOR CONTINUITY OF CARE. ALL NEEDS MET THROUGHOUT SHIFT. PT IS STABLE.
[2022-09-30 20:00] VITALS: BP 138/69
[2022-09-30] MEDS: ZOLPIDEM 5 MG TAB PO PRN (20:24)
[2022-09-30] MEDS: HYDROcodone/APAP 7.5/325 MG 1 TAB PO PRN (20:24)
[2022-10-01] VITALS: BP 115/55
[2022-10-01 04:00] VITALS: BP 123/81
[2022-10-01] MEDS ORDERED: ceFAZolin 1,000 MG VIAL ONE (05:13)
[2022-10-01] MEDS: LEVOTHYROXINE 0.05 MG TAB PO SCH (05:35)
[2022-10-01 06:10] LABS: BASOPHILS # (AUTO) 0.1 K/uL (0.00-0.22); BASOPHILS % (AUTO) 0.7 % (0.0-2.0); EOSINOPHILS # (AUTO) 0.1 K/uL (0-0.4); EOSINOPHILS % (AUTO) 0.5 % (0.0-4.0); HEMATOCRIT 28.6 % (36-52); HEMOGLOBIN 9.6 g/dL (12.0-18.0); LYMPHOCYTES # (AUTO) 2.8 K/uL (2.0-11.5); LYMPHOCYTES % (AUTO) 23.6 % (20.5-51.1); MEAN CORPUSCULAR HEMOGLOBIN 28 pg (27-31); MEAN CORPUSCULAR HGB CONC 34 g/dL (33-37); MEAN CORPUSCULAR VOLUME 83.3 fL (80-94); MONOCYTES # (AUTO) 1.2 K/uL (0.8-1.0); NEUTROPHILS # (AUTO) 7.8 K/uL (1.8-7.7); NEUTROPHILS % (AUTO) 65.2 % (42.2-75.2); PLATELET COUNT (AUTO) 643 K/uL (140-450); RED BLOOD CELL COUNT(AUTO) 3.44 MIL/uL (4.20-6.10); RED CELL DISTRIBUTION WIDTH 14.3 % (11.6-13.7); WHITE BLOOD COUNT (AUTO) 11.9 K/uL (4.8-10.8)
[2022-10-01 06:27] LABS: ANION GAP 7.6 (8-16); CARBON DIOXIDE 31.2 mmol/L (21-32); CREATININE 0.8 mg/dL (0.6-1.3); POTASSIUM 3.8 mmol/L (3.5-5.1)
[2022-10-01] MEDS: BLOOD GLUCOSE MONITORING 1 DEV DEV FS SCH ×4 (06:39→20:13)
--- NOTE | 2022-10-01 06:40 | NUR ---
BLOOD SUGAR CHECKED WAS 145. NO INSULIN COVERAGE NEEDED.
--- NOTE | 2022-10-01 06:42 | NUR ---
PATIENT AWAKE ALERT ORIENTED X4 ON ROOM AIR. NO SOB. BREATHING NORMAL NON LABORED. NO COMPLAINTS OF PAIN AT THIS TIME. IVF NS INFUSING AT 60 ML/HR ON THE LEFT HAND. SAFETY MEASURES IN PLACE. CALL LIGHT WITHIN REACH. PATIENT STABLE THROUGHOUT THE SHIFT.
--- NOTE | 2022-10-01 07:21 | NUR ---
ENDORSED PATIENT TO DAY SHIFT NURSE MARIS FOR CONTINUITY OF CARE. PATIENT IN STABLE CONDITION.
--- NOTE | 2022-10-01 07:30 | NUR ---
RECEIVED REPORT FROM FRUIT AND VEGETABLE CLASSER NURSE FOR CONTINUITY OF CARE, POC DISCUSSED. PT IS STABLE IN BED ASLEEP WITH CHEST RISING AND FALLING EVEN AND UNLABORED. ALL SAFETY MEASURES IN PLACE, CALL LIGHT WITHIN REACH. WILL CONTINUE TO MONITOR.
[2022-10-01 08:00] VITALS: BP 133/82
[2022-10-01] MEDS: INSULIN LANTUS 100 UNITS/ML 10 ML VIAL SUBQ SCH (08:31)
[2022-10-01] MEDS: ATORVASTATIN 20 MG TAB PO SCH (08:32)
[2022-10-01] MEDS: PANTOPRAZOLE 40 MG TABEC PO SCH (08:32)
[2022-10-01] MEDS: metFORMIN 500 MG TAB PO SCH ×2 (08:33→16:13)
--- NOTE | 2022-10-01 08:45 | NUR ---
ISHA MEDICATION ADMINISTERED PER MD ORDER, PT TOLERATED ADMINISTRATION. REPORTS ALL OTHER NEEDS ARE BEING MET. CALL LIGHT WITHIN REACH. WILL CONTINUE TO MONITOR.
--- NOTE | 2022-10-01 11:30 | NUR ---
BLOOD GLUCOSE OF 317, 8 UNITS OF INSULIN ADMINISTERED PER MD ORDER. PT TOLERATED ADMINISTRATION. ALL SAFETY MEASURES IN PLACE, CALL LIGHT WITHIN REACH WILL CONTINUE TO MONITOR.
[2022-10-01 12:00] VITALS: BP 118/77
[2022-10-01] MEDS: INSULIN LISPRO SLIDING SCALE 100 UNITS/ML VIAL SUBQ PRN ×2 (12:03→16:17)
--- NOTE | 2022-10-01 13:30 | NUR ---
LEFT HAND INFILTRATED, NEW IV PLACED TO RIGHT AC 20 G, 1 ATTEMPT. PT TOLERATED INSERTION. IV PATENT WITH BLOOD RETURN. [facility] IV MEDICATION ADMINISTERED PER MD ORDER. PT REPORTS ALL NEED ARE MET. ALL SAFETY MEASURES IN PLACE, CALL LIGHT WITHIN REACH. WILL CONTINUE TO MONITOR.
[2022-10-01 16:00] VITALS: BP 105/72
--- NOTE | 2022-10-01 16:18 | NUR ---
BLOOD GLUCOSE OF 256, 6 UNITS OF INSULIN ADMINISTERED TO LEFT UPPER ARM. ISHA MEDICATION ADMINISTERED; ALL SAFETY MEASURES IN PLACE, CALL LIGHT WITHIN REACH. WILL CONTINUE TO MONITOR.
--- NOTE | 2022-10-01 18:54 | NUR ---
PT HAS REMAINED STABLE, ALL NEEDS HAVE BEEN MET. WILL ENDORSE TO DIE SIZER NURSE AT 1900.
[2022-10-01] MEDS: HYDROcodone/APAP 7.5/325 MG 1 TAB PO PRN (20:14)
--- NOTE | 2022-10-01 20:14 | NUR ---
rn notes patient refuses insulin with his BS of 157. He said its fine at this time.
[2022-10-01] MEDS: ZOLPIDEM 5 MG TAB PO PRN (20:35)
[2022-10-01 20:52] VITALS: BP 122/78
[2022-10-02] MEDS: LEVOTHYROXINE 0.05 MG TAB PO SCH (05:37)
[2022-10-02] MEDS: BLOOD GLUCOSE MONITORING 1 DEV DEV FS SCH ×4 (05:52→21:47)
--- NOTE | 2022-10-02 05:52 | NUR ---
rn notes patient remains on room air, no sob noted. VSS all shift. Last BS was 233. Will cover with day shift with breakfast.
[2022-10-02 06:02] LABS: BASOPHILS # (AUTO) 0.1 K/uL (0.00-0.22); BASOPHILS % (AUTO) 0.5 % (0.0-2.0); EOSINOPHILS # (AUTO) 0.1 K/uL (0-0.4); EOSINOPHILS % (AUTO) 0.5 % (0.0-4.0); HEMATOCRIT 28.9 % (36-52); HEMOGLOBIN 9.6 g/dL (12.0-18.0); LYMPHOCYTES # (AUTO) 2.7 K/uL (2.0-11.5); LYMPHOCYTES % (AUTO) 24.6 % (20.5-51.1); MEAN CORPUSCULAR HEMOGLOBIN 28 pg (27-31); MEAN CORPUSCULAR HGB CONC 33 g/dL (33-37); MEAN CORPUSCULAR VOLUME 83.3 fL (80-94); MONOCYTES % (AUTO) 9.5 % (1.7-9.3); NEUTROPHILS # (AUTO) 7.1 K/uL (1.8-7.7); NEUTROPHILS % (AUTO) 64.9 % (42.2-75.2); PLATELET COUNT (AUTO) 654 K/uL (140-450); RED BLOOD CELL COUNT(AUTO) 3.46 MIL/uL (4.20-6.10); RED CELL DISTRIBUTION WIDTH 14.4 % (11.6-13.7); WHITE BLOOD COUNT (AUTO) 10.9 K/uL (4.8-10.8)
[2022-10-02 06:34] LABS: ANION GAP 10.9 (8-16); CARBON DIOXIDE 29.9 mmol/L (21-32); CREATININE 0.9 mg/dL (0.6-1.3); POTASSIUM 3.8 mmol/L (3.5-5.1)
--- NOTE | 2022-10-02 07:38 | NUR ---
RECEIVED REPORT FROM AUTOMATIC BRINE MIXER OPERATOR NURSE, ALL NIGHT EVENTS COVERED AND DISCUSSED. POC DISCUSSED. PT IS STABLE IN BED ASLEEP WITH CHEST RISING AND FALLING EVEN AND UNLABORED. ON TELEMONITOR. ALL SAFETY MEASURES IN PLACE, CALL LIGHT WITHIN REACH. WILL CONTINUE TO MONITOR.
[2022-10-02 08:00] VITALS: BP 140/99
[2022-10-02] MEDS: INSULIN LANTUS 100 UNITS/ML 10 ML VIAL SUBQ SCH (08:06)
[2022-10-02] MEDS: metFORMIN 500 MG TAB PO SCH ×2 (08:12→16:40)
[2022-10-02] MEDS: PANTOPRAZOLE 40 MG TABEC PO SCH (08:12)
[2022-10-02] MEDS: ATORVASTATIN 20 MG TAB PO SCH (08:12)
[2022-10-02] MEDS: INSULIN LISPRO SLIDING SCALE 100 UNITS/ML VIAL SUBQ PRN ×3 (11:51→22:07)
[2022-10-02 12:00] VITALS: BP 133/82
--- NOTE | 2022-10-02 15:21 | NUR ---
PT STABLE IN BED REPORTING ALL NEEDS ARE BEING MET. ALL SAFETY MEASURES IN PLACE, CALL LIGHT WITHIN REACH. WILL CONTINUE TO MONITOR.
[2022-10-02 16:00] VITALS: BP 147/94
[2022-10-02] MEDS: HYDROcodone/APAP 7.5/325 MG 1 TAB PO PRN ×2 (16:40→21:58)
--- NOTE | 2022-10-02 18:54 | NUR ---
ALL NEEDS HAVE BEEN MET, ALL SAFETY MEASURES IN PLACE. CALL LIGHT WITHIN REACH. PT WILL BE ENDORSED TO TELECOMMUNICATIONS PROFESSIONAL NURSE.
[2022-10-02 20:00] VITALS: BP 122/81
--- NOTE | 2022-10-02 20:00 | NUR ---
HAND-OFF REPORT RECEIVED FROM A.M NURSE. PT RECEIVED A/O X4. STATED LEFT SIDE PAIN FROM "COUGHING". NOTED SPUTUM TO BE PEA GREEN GELATINOUS AND TENACIOUS LARGE GLOBULES SPIT UP IN STYROFOAM CUP AT BEDSIDE. VOIDS IN URINALS. ASSIST NEEDED.
[2022-10-03] VITALS: BP 117/72
--- NOTE | 2022-10-03 | NUR ---
MEDICATED FOR LEFT SIDE PAIN. SEE EMAR. EFFECTIVE. SLEEPING AT THIS TIME.
[2022-10-03 04:00] VITALS: BP 121/76
[2022-10-03] MEDS: LEVOTHYROXINE 0.05 MG TAB PO SCH (05:39)
[2022-10-03] MEDS: BLOOD GLUCOSE MONITORING 1 DEV DEV FS SCH ×2 (05:40→12:17)
[2022-10-03 05:54] LABS: BASOPHILS % (AUTO) 0.4 % (0.0-2.0); EOSINOPHILS % (AUTO) 0.4 % (0.0-4.0); HEMATOCRIT 29.2 % (36-52); HEMOGLOBIN 9.7 g/dL (12.0-18.0); LYMPHOCYTES # (AUTO) 2.7 K/uL (2.0-11.5); LYMPHOCYTES % (AUTO) 22.4 % (20.5-51.1); MEAN CORPUSCULAR HEMOGLOBIN 28 pg (27-31); MEAN CORPUSCULAR HGB CONC 33 g/dL (33-37); MEAN CORPUSCULAR VOLUME 84.3 fL (80-94); MONOCYTES % (AUTO) 8.7 % (1.7-9.3); NEUTROPHILS # (AUTO) 8.2 K/uL (1.8-7.7); NEUTROPHILS % (AUTO) 68.1 % (42.2-75.2); PLATELET COUNT (AUTO) 670 K/uL (140-450); RED BLOOD CELL COUNT(AUTO) 3.46 MIL/uL (4.20-6.10); RED CELL DISTRIBUTION WIDTH 14.5 % (11.6-13.7); WHITE BLOOD COUNT (AUTO) 12.1 K/uL (4.8-10.8)
[2022-10-03] MEDS: INSULIN LISPRO SLIDING SCALE 100 UNITS/ML VIAL SUBQ PRN ×2 (06:19→12:20)
[2022-10-03 07:16] LABS: ANION GAP 8.4 (8-16); CARBON DIOXIDE 33.8 mmol/L (21-32); POTASSIUM 4.2 mmol/L (3.5-5.1)
--- NOTE | 2022-10-03 07:30 | NUR ---
MEDICATED FOR LEFT SIDE PAIN THIS A.M FOR LEFT SIDE PAIN. NORCO 7.5. SEE EMAR. SLEEPING QUIETLY AT THIS TIME. RELINQUISHED CARE TO ON-COMING NURSE.
[2022-10-03 08:00] VITALS: BP 120/75
--- NOTE | 2022-10-03 08:00 | NUR ---
RECEIVED REPORT FROM ENGINEERING AND DEVELOPMENT DIRECTOR FOR CONTINUITY OF CARE. PATIENT ALERT AWAKE ORIENTED 4, NOT IN ANY DISTRESS NOTED. DENIES CHEST PAIN. WITH IVF ON GOING AND INFUSING WELL. ON MOID MIDDLE SCHOOL TEACHER SHOWS SR. PATIENT AMBULATES IN THE ROOM. CALL LIGHT WITHIN REACH. WILL CONTINUE TO MONITOR.
[2022-10-03] MEDS: metFORMIN 500 MG TAB PO SCH (09:10)
[2022-10-03] MEDS: ATORVASTATIN 20 MG TAB PO SCH (09:10)
[2022-10-03] MEDS: PANTOPRAZOLE 40 MG TABEC PO SCH (09:10)
[2022-10-03] MEDS: INSULIN LANTUS 100 UNITS/ML 10 ML VIAL SUBQ SCH (09:11)
--- NOTE | 2022-10-03 11:00 | NUR ---
PATIENT WENT TO X-RAY DEPARTMENT. WITH ORDER FOR DC TODAY, DISCUSSED TO THE PATIENT REGARDING THE PLAN, VERBALIZED UNDERSTANDING. IN STABLE CONDITION.
[2022-10-03 12:00] VITALS: BP 129/70
[2022-10-03] MEDS ORDERED: ATOR20TA PO (13:30)
[2022-10-03] MEDS ORDERED: LEVO0.087 PO (13:30)
[2022-10-03] MEDS ORDERED: AZIT250T3 PO (13:30)
[2022-10-03] MEDS ORDERED: METF-346 PO (13:30)
[2022-10-03] MEDS ORDERED: LANTUS SUBQ (13:30)
--- NOTE | 2022-10-03 14:30 | NUR ---
PATIENT DC TO HOME AMBULATORY WITH DC INSTRUCTION AND PRESCRIPTION GIVEN AND VERBALIZED UNDERSTANDING. IN STABLE CONDITION.
[2022-10-04] MEDS ORDERED: LEVOTHYROXINE 0.088 MG TAB PO SCH (06:30)
== END 2022-10-03 14:30 | disposition home or self-care (01) | DRG 720 ==
LOC: MED 01:00 → MTU 03:56 → MMU 09-28 06:16
PROVIDERS: ADMIT Family Medicine; ATTEND Family Medicine
DX: A41.01 Sepsis due to Methicillin susceptible Staphylococcus aureus (principal); E43 Unspecified severe protein-calorie malnutrition; J15.211 Pneumonia due to Methicillin susceptible Staphylococcus aureus; E87.1 Hypo-osmolality and hyponatremia; R17 Unspecified jaundice; Z20.822 Contact with and (suspected) exposure to COVID-19; E83.42 Hypomagnesemia; E03.9 Hypothyroidism, unspecified; F15.10 Other stimulant abuse, uncomplicated; R59.1 Generalized enlarged lymph nodes; I25.10 Atherosclerotic heart disease of native coronary artery without angina pectoris; E11.65 Type 2 diabetes mellitus with hyperglycemia; Z68.35 Body mass index [BMI] 35.0-35.9, adult; R07.89 Other chest pain
CPT/HCPCS: 36415; 71045; 71046; 71250; 74150; 80048; 80053; 80305; 81001; 82150; 82948; 83036; 83690; 83735; 83880; 84100; 84436; 84439; 84443; 84479; 84484; 85025; 85610; 85730; 87040; 87081; 87086; 87186; 96365; 96375; 99285; J0456; J0690; J1815; J2270; J2405; J2543; J7060; Q0092

== ENCOUNTER 2023-10-18 10:37 | Emergency (ER) | payer MEDICAID ==
[~2023-10-18] VITALS: Ht 170.2 cm; Wt 81.6 kg
[~2023-10-18 10:37] MED LIST changes: +ATOR20TA PO; -CEPH-588 PO; -CLIN300C61 PO; -IBUP-2218 PO; +LANTUS SUBQ; +LEVO0.087 PO; +METF-346 PO
[2023-10-18 11:01] VITALS: BP 163/111; PULSE 89; RESP 20; TEMP 98.5; O2SAT 100
[2023-10-18 13:17] VITALS: BP 163/111; PULSE 89; RESP 20; TEMP 98.5; O2SAT 100
== END 2023-10-18 13:17 | disposition left against medical advice (07) ==
LOC: MED 10:37
DX: R53.1 Weakness (principal); R41.82 Altered mental status, unspecified; Z53.21 Procedure and treatment not carried out due to patient leaving prior to being seen by health care provider
CPT/HCPCS: 99281